=== PATIENT | male | born 1985 ===

== ENCOUNTER 2020-01-14 09:48 | Inpatient (IN) | payer OTHER ==
[~2020-01-14] VITALS: Ht 180.3 cm; Wt 114.3 kg
[2020-01-14] MEDS ORDERED: DIPHENHYDRAMINE 50 MG/ML, 1ML ONE ×2 (10:38→14:01)
[2020-01-14] MEDS ORDERED: HYDROmorphone 2 MG/ML, 1ML ONE (10:39)
[2020-01-14] MEDS: DIPHENHYDRAMINE 50 MG/ML, 1ML IVPush PRN ×3 (10:43→23:31)
[2020-01-14] MEDS: LACTATED RINGERS 1,000 ML IV SCH ×3 (10:44→23:42)
[2020-01-14] MEDS ORDERED: LABETALOL 5MG/ML, 20ML IVPush PRN (11:00)
[2020-01-14] MEDS ORDERED: HYDROmorphone 2 MG/ML, 1ML IVPush PRN (11:00)
[2020-01-14] MEDS ORDERED: PLEASE ENTER ALLERGIES MC SCH (11:00)
[2020-01-14] MEDS ORDERED: OXYcodone IR 5MG TABLET PO PRN (11:00)
[2020-01-14] MEDS ORDERED: BISACODYL 10 MG SUPP PR PRN (11:00)
[2020-01-14] MEDS: PLEASE ENTER HEIGHT AND WEIGHT MC SCH ×2 (11:00→12:11)
[2020-01-14] MEDS ORDERED: ONDANSETRON 2MG/ML, 2ML IVPush PRN (11:00)
[2020-01-14] MEDS ORDERED: POLYETHYLENE GLYCOL 17 GM PACKET PO PRN (11:00)
[2020-01-14] MEDS ORDERED: ACETAMINOPHEN 325 MG TABLET PO PRN (11:00)
[2020-01-14] MEDS ORDERED: ENALAPRILAT 1.25 MG/ML, 2ML IVPush PRN (11:00)
[2020-01-14 11:34] VITALS: BP 157/85
[2020-01-14] MEDS: HYDROmorphone 2 MG/ML, 1ML IVPush PRN ×6 (12:55→23:32)
[2020-01-14] MEDS ORDERED: FENTANYL PF 250 MCG/5ML ONE ×2 (13:48→14:37)
[2020-01-14] MEDS ORDERED: LIDOCAINE 1%, 10ML ONE (14:10)
[2020-01-14] MEDS ORDERED: MIDAZOLAM 1 MG/ML, 2ML ONE (14:25)
[2020-01-14] MEDS ORDERED: DIPHENHYDRAMINE 50 MG/ML, 1ML IVPush ONE (14:30)
[2020-01-14] MEDS ORDERED: FENTANYL PF 250 MCG/5ML IVPush ONE ×2 (14:30→15:00)
[2020-01-14] MEDS ORDERED: MIDAZOLAM 1 MG/ML, 2ML IVPush ONE (14:30)
[2020-01-14 16:59] LABS: MEAN CORPUSCULAR HEMOGLOBIN 30.3 pg (27.5-34.5); MEAN CORPUSCULAR HGB CONC 33.4 g/dL (33.2-36.2); MEAN PLATELET VOLUME 8.2 fL (7.4-10.4); PLATELET COUNT 291 x10^3/uL (130-400); RED BLOOD COUNT 3.46 x10^6/uL (4.38-5.82); RED CELL DISTRIBUTION WIDTH 18.7 % (9.4-14.8)
[2020-01-14 17:13] LABS: MD YES
[2020-01-14] MEDS: ENOXAPARIN 40 MG/0.4 ML SQ SCH (17:15)
[2020-01-14 18:14] LABS: BASOS#(MANUAL) 0.07 x10^3/uL (0-0.1); BASOS% (MANUAL) 1 % (0-1); LYMPH#(MANUAL) 0.43 x10^3/uL (1-3.4); LYMPHS% (MANUAL) 6 % (22-44); MONOS#(MANUAL) 1.07 x10^3/uL (0.3-2.7); MONOS% (MANUAL) 15 % (2-9); SEG#(MANUAL) 5.54 x10^3/uL (1.8-6.8); SEGS% (MANUAL) 78 % (42-75)
[2020-01-14 18:17] LABS: ANISOCYTOSIS 1+; OVALOCYTES 1+; POLYCHROMASIA 1+
[2020-01-14 18:20] LABS: HYPOCHROMIA 1+
[2020-01-14 19:13] LABS: <PLATELET ESTIMATE> ADEQUATE; <PLT MORPHOLOGY> NORMAL PLT MORPH
[2020-01-15] MEDS: HYDROmorphone 2 MG/ML, 1ML IVPush PRN ×12 (01:31→23:25)
[2020-01-15] MEDS: PLEASE ENTER HEIGHT AND WEIGHT MC SCH (02:40)
[2020-01-15 03:39] VITALS: BP 135/80
[2020-01-15 04:56] LABS: BASOPHILS % (AUTO) 1 % (0-1); EOSINOPHILS % (AUTO) 1 % (1-7); LYMPHOCYTES % (AUTO) 11 % (22-44); MEAN CORPUSCULAR HEMOGLOBIN 30.2 pg (27.5-34.5); MEAN CORPUSCULAR HGB CONC 33.3 g/dL (33.2-36.2); MEAN PLATELET VOLUME 8.4 fL (7.4-10.4); MONOCYTES % (AUTO) 16 % (2-9); NEUTROPHILS % (AUTO) 71 % (42-75); PLATELET COUNT 283 x10^3/uL (130-400); RED CELL DISTRIBUTION WIDTH 19.4 % (9.4-14.8)
[2020-01-15 04:57] LABS: ALANINE AMINOTRANSFERASE 21 U/L (12-78); ALBUMIN 3.4 g/dL (3.4-5.0); CALCIUM 8.2 mg/dL (8.5-10.1); CREATININE 0.98 mg/dL (0.7-1.3)
[2020-01-15 04:59] LABS: ALKALINE PHOSPHATASE 51 U/L (45-117); BILIRUBIN,TOTAL 0.3 mg/dL (0.2-1.0); TOTAL PROTEIN 5.9 g/dL (6.4-8.2)
[2020-01-15 05:05] LABS: ANION GAP 5 mmol/L (5-15); CHLORIDE 108 mmol/L (98-107)
[2020-01-15 05:10] LABS: MD NO
[2020-01-15] MEDS: DIPHENHYDRAMINE 50 MG/ML, 1ML IVPush PRN ×4 (05:34→23:24)
[2020-01-15] MEDS: LACTATED RINGERS 1,000 ML IV SCH ×3 (06:31→19:47)
[2020-01-15] MEDS: SENNA/DOCUSATE TABLET PO SCH (09:35)
[2020-01-15] MEDS: ENOXAPARIN 40 MG/0.4 ML SQ SCH (17:36)
[2020-01-15] MEDS: CLOPIDOGREL 75 MG TABLET PO SCH (19:51)
[2020-01-15 20:00] LABS: CHOL/HDL RATIO 2.3; LDL/HDL RATIO 0.8 (0.5-3.0)
[2020-01-15] MEDS ORDERED: ATORVASTATIN 80 MG TABLET PO SCH (21:00)
[2020-01-16] MEDS: HYDROmorphone 2 MG/ML, 1ML IVPush PRN ×4 (01:29→07:29)
[2020-01-16] MEDS: LACTATED RINGERS 1,000 ML IV SCH (03:00)
[2020-01-16 04:43] VITALS: BP 128/81
[2020-01-16 05:05] LABS: BASOPHILS % (AUTO) 2 % (0-1); EOSINOPHILS % (AUTO) 4 % (1-7); LYMPHOCYTES % (AUTO) 12 % (22-44); MEAN CORPUSCULAR HEMOGLOBIN 29.7 pg (27.5-34.5); MEAN PLATELET VOLUME 8.5 fL (7.4-10.4); MONOCYTES % (AUTO) 20 % (2-9); NEUTROPHILS % (AUTO) 63 % (42-75); PLATELET COUNT 288 x10^3/uL (130-400); RED BLOOD COUNT 3.56 x10^6/uL (4.38-5.82); RED CELL DISTRIBUTION WIDTH 18.7 % (9.4-14.8)
[2020-01-16] MEDS: DIPHENHYDRAMINE 50 MG/ML, 1ML IVPush PRN (05:28)
[2020-01-16 05:59] LABS: MD SCAN
[2020-01-16] MEDS: SENNA/DOCUSATE TABLET PO SCH (09:13)
[2020-01-16] MEDS: CLOPIDOGREL 75 MG TABLET PO SCH (09:13)
== END 2020-01-16 10:45 | disposition home or self-care (01) | DRG 812 ==
LOC: CCU 10:09
PROVIDERS: ADMIT Family Medicine; ATTEND Family Medicine
PROC: 02HV33Z Insertion of Infusion Device into Superior Vena Cava, Percutaneous Approach (ICD-10-PCS; principal; 2020-01-14)
PROC: B5181ZA Fluoroscopy of Superior Vena Cava using Low Osmolar Contrast, Guidance (ICD-10-PCS; 2020-01-14)
DX: D57.00 Hb-SS disease with crisis, unspecified (principal); E87.1 Hypo-osmolality and hyponatremia; E87.2 Acidosis; D68.59 Other primary thrombophilia; Z86.718 Personal history of other venous thrombosis and embolism; I69.398 Other sequelae of cerebral infarction
CPT/HCPCS: 36415; 36556; 70551; 76937; 80053; 80061; 85025; 87081; 99156; 99157; C1725; C1894; G0378; J1170; J1650; J2250; J3010; C1751; C1769; J1200; J1642; J7120